=== PATIENT | male | born 1990 | race Two or more races ===

== ENCOUNTER → 2021-12-23 | Outpatient (CLI) | payer MEDICAID, SELFPAY | LOC: M SOG 13:32 | PROVIDERS: ATTEND Orthopaedic Surgery Sports Medicine | DX: M25.562 Pain in left knee (principal) ==

== ENCOUNTER → 2022-03-25 | Outpatient (CLI) | payer SELFPAY | LOC: M LABSMTC 10:40 | PROVIDERS: ATTEND Anesthesiology | DX: Z01.812 Encounter for preprocedural laboratory examination (principal) ==

== ENCOUNTER 2022-03-26 15:00 | Day surgery (SDC) | payer BC ==
[~2022-03-26] VITALS: Ht 175.3 cm; Wt 97.0 kg
[~2022-03-26 15:00] MED LIST: LR 1,000 ML IV ONE; ceFAZolin SOD 2 GM in IV 1 EA IV ONE
[2022-03-26] MEDS ORDERED: EPINEPHrine 1MG/ML INJ 30ML MD-VIAL As Ordered ONE (16:35)
[2022-03-26] MEDS ORDERED: TRANEXAMIC ACID 100 MG/ML 10ML VIAL As Ordered ONE (16:57)
[2022-03-26] MEDS ORDERED: dexameTHASONE 4 MG/ML 1ML VIAL (J1100 PER 1MG) As Ordered ONE (18:15)
[2022-03-26] MEDS ORDERED: KETOROLAC 60MG 2ML VIAL As Ordered ONE (18:15)
[2022-03-26] MEDS ORDERED: METOCLOPRAMIDE INJ 10MG/2ML VIAL (J2765 PER 1) As Ordered ONE (18:15)
[2022-03-26] MEDS ORDERED: MIDAZOLAM INJ 2MG/2ML VIAL (J2250 PER 1MG) As Ordered ONE (18:15)
[2022-03-26] MEDS ORDERED: propofoL 200 MG/20 ML VIAL As Ordered ONE (18:15)
[2022-03-26] MEDS ORDERED: LIDOCAINE 2% 100MG/5ML SDV (FOR ANES.) As Ordered ONE (18:15)
[2022-03-26] MEDS ORDERED: fentaNYL 100 MCG/2 ML INJECTION As Ordered ONE (18:15)
[2022-03-26] MEDS ORDERED: ONDANSETRON 4MG/2ML VIAL As Ordered ONE (18:15)
[2022-03-26] MEDS ORDERED: BUPIVACAINE HCL 0.25% 30ML VIAL As Ordered ONE (19:11)
[2022-03-26] MEDS ORDERED: LIDOCAINE 1% SDV 30ML VIAL As Ordered ONE (19:11)
[2022-03-26] MEDS ORDERED: LABETALOL 100MG/20ML VIAL As Ordered ONE (20:36)
[2022-03-26] MEDS ORDERED: LR 1,000 ML IV SCH (21:05)
[2022-03-26] MEDS ORDERED: oxyCODONE 5MG TAB PO PRN (21:05)
[2022-03-26] MEDS ORDERED: fentaNYL 100 MCG/2 ML INJECTION IV PRN (21:05)
[2022-03-26] MEDS ORDERED: METOCLOPRAMIDE INJ 10MG/2ML VIAL (J2765 PER 1) IV PRN (21:05)
[2022-03-26] MEDS ORDERED: ONDANSETRON 4MG/2ML VIAL IV PRN (21:05)
[2022-03-26 21:50] VITALS: BP 118/69
[2022-03-27] MEDS ORDERED: UNRESOLVED CLARIFICATION ENTRY XX SCH (00:01)
== END 2022-03-26 22:04 | disposition home or self-care (01) ==
LOC: M SDC 15:00
PROVIDERS: ATTEND Orthopaedic Surgery
DX: S83.282A Other tear of lateral meniscus, current injury, left knee, initial encounter (principal); M94.262 Chondromalacia, left knee; X58.XXXA Exposure to other specified factors, initial encounter; Y92.89 Other specified places as the place of occurrence of the external cause; Y93.9 Activity, unspecified; Y99.9 Unspecified external cause status; F17.220 Nicotine dependence, chewing tobacco, uncomplicated
CPT/HCPCS: 29881; J0171; J0690; J1100; J1885; J2250; J2405; J2765; J3010